=== PATIENT | female | born 1965 | race Caucasian/White ===

== ENCOUNTER 2018-10-01 16:11 | Outpatient (REF) | payer BC, SELFPAY ==
--- NOTE | 2018-10-01 15:40 | PAPFT_PTH ---
PATIENT: Mercedes Naik LOC: [facility] U#:[id number] AGE/SX: 52/F ROOM: RE10/01/[address]: Lashaun Urena : 1965 BED: DIS: 10/01/2018 SPEC #: [id number] RECD: 10/01/18 16:48 STATUS: MACKENZIE REMartinez #: [id number] JANET: 10/01/18 15:[address]: Lashaun Urena DEPT: [facility] Cytology RECD BY: Eugenie Sanchez ENTERED: 10/01/18 16:48 SP TYPE: PAPFT OTHR DR: Katherine Dey V Tissues: 1 - CX/ENDOCX FOR PAP SMEARS Procedures: PAP THIN PREP/UVM Screening HPV DNA PROBE Comments: [id number]
== END 2018-10-01 16:31 ==
LOC: LBN 16:11
PROVIDERS: PCP Family Medicine; Visit Provider Obstetrics & Gynecology Gynecology
DX: Z12.4 Encounter for screening for malignant neoplasm of cervix (principal); Z11.51 Encounter for screening for human papillomavirus (HPV)
CPT/HCPCS: 88142; 87624

== ENCOUNTER 2018-10-14 00:38 | Outpatient (CLI) | payer BC, SELFPAY ==
--- NOTE | 2018-10-14 15:55 | DI.MAMMO_ITS ---
SYMPTOMS/DIAGNOSIS: SCREENING, Z12.31 MAMMOGRAM: Mammograms were interpreted according to the usual protocol including computer analysis with CAD system, tomosynthesis and C view imaging. Comparison is made with 2015 through 2018. The breasts are composed of heterogeneously dense fibroglandular tissue, breast density Category C. No suspicious masses or suspicious microcalcifications are seen. There has been no significant change. IMPRESSION: Category I, negative mammogram. Yearly screening mammography is recommended. [facility] ASSESSMENT OF FINDINGS: Negative. Category 1. Patient will receive a letter notifying them of these results. Bi-RADS category C. The breasts are heterogeneously dense, which may obscure small masses.
== END 2018-10-14 00:58 ==
PROVIDERS: PCP Family Medicine; Visit Provider Obstetrics & Gynecology Gynecology
DX: Z12.31 Encounter for screening mammogram for malignant neoplasm of breast (principal)
CPT/HCPCS: 77063; 77067

== ENCOUNTER 2019-09-20 07:51 | Emergency (ER) | payer OTHER, SELFPAY ==
--- NOTE | 2019-09-20 07:54 | W.ED.GENAD ---
Discharge Plan Disposition Patient Disposition: HOME Condition: Good Discharge Details Chief Complaint: Orthopedic Clinical Impression: Acute pain of right shoulder, Trapezius muscle spasm, Biceps tendinitis Primary Care Provider: Melisa Brower ED Provider: Kirsten Jane Home Meds and New Rx's Prescriptions: New cyclobenzaprine 10 mg tablet 10 mg PO TID PRN (Reason: muscle spasm) Qty: 10 RF: 0 Continued ranitidine HCl [Zantac] 150 mg tablet 150 mg PO BID RF: 0 fluticasone propionate [Flonase Allergy Relief] 50 mcg/actuation spray,suspension 1 spray YULY DAILY RF: 0 ketotifen fumarate [Zaditor] 5 ML drops 5 ml Ophthalmic DAILY RF: 0 Vitamin C 1,000 mg Tablet Extended Release 1,000 mg PO DAILY RF: 0 famotidine 20 mg Tablet 20 mg PO BID RF: 0 cyanocobalamin (vitamin B-12) [Vitamin B-12] 500 mcg Tablet 500 mcg PO DAILY RF: 0 loratadine 10 mg Tablet 10 mg PO DAILY RF: 0 Discharge Instructions Instructions: Tendinitis (ED), Shoulder Pain (ED) Additional Instructions: Your shoulder x-ray shows mild arthritis. I am concerned you may have a rotator cuff injury but I am unable to evaluate this at this time. I would like for you to follow-up with orthopedics to have this reevaluated. You also have pain of your biceps tendon as well as spasm of the trapezius. I would like you to encourage water intake. You may use Tylenol and/or ibuprofen as needed for discomfort. Please use the sling to help with discomfort to take this off multiple times a day to perform range of motion. As you are able, you may wean from your sling. Please perform the passive range of motion as discussed. Heat may help prior to this. You may ice the area as well to help with discomfort. Please use the Flexeril as prescribed to help with muscle spasm. Do not drive will take this medication. Physical therapy referral is attached. Please call orthopedics tomorrow morning to schedule follow-up appointment. If you develop any new or worsening symptoms please seek care urgently once again. Stand Alone Forms: Physical Therapy Referral, Work Release Referrals: Leo Kim MD [ [facility] STAFF PHYSICIAN] - Melisa Brower [Primary Care Provider] - Discharge Data Discharge Date/Time-TO BE ENTERED AT DEPARTURE: 09/20/19 09:33 Medical Decision Making Patient is a pleasant [id number] 53-year-old female presenting today with chief complaint of right shoulder pain. She reports that yesterday, while working at a [employer] yard, somebody had caused her a piece of pressure-treated wood. She states that she did catch in her hand but heard a pop and crunch in the right shoulder. States that she did have some discomfort immediately after but that the pain is progressively worsened. Is unable to move the right shoulder at all. States that she can occasionally have some tingling in the right hand but is not endorsing this this time. States that she did take Tylenol approximately 8 hours prior to arrival. States that this did help some but she did have difficulty sleeping secondary to pain. No pain in the elbow, wrist, hand. Patient does have multiple bandage on the right hand which she denies any lacerations or break in the skin at the time of the injury. States that the are from working outside [employer]. No previous surgeries or injuries to this. On exam, patient does appear uncomfortable. She is point tender over the biceps tendon. Did not appreciate any Sulaiman deformity. She is full range of motion of the elbow, wrist, hands. Patient is also tender over the trapezius and does feel tight in this area. She has minimal range of motion of the shoulder. No pain in her neck, good range of motion of her neck. 2+ distal pulses, normal neurologic exam of the right upper extremity. Plan for imaging. Unable to fully assess the rotator cuff at this time secondary to patient's discomfort. Will give Tylenol, ibuprofen and Flexeril for discomfort. Majority of her pain is coming from the trapezius at this time and is consistent with spasm. She does have a friend who brought her in and can drive her home. FINDINGS: Bones/joints: Degenerative changes in the glenohumeral joint and acromioclavicular joint There is no evidence of acute fracture.There is no evidence of malalignment or dislocation. Soft tissues: Normal. IMPRESSION: There is no evidence of acute fracture.There is no evidence of malalignment or dislocation Discussed these findings with the patient. Encourage rest, ice, elevation. Tylenol and ibuprofen as needed for discomfort. She does report slight improvement of her discomfort. We will continue her on the Flexeril to help with muscle spasm. I am concerned about her rotator cuff given her discomfort, tenderness over the lateral aspect of the shoulder and limited range of motion at this point. However, I did advise that some of her pain is feel to come down prior to thorough examination of this. Will refer to orthopedics. I did advise that likely would be a few weeks before they would be able to evaluate her appropriately. We will give her a sling to help with discomfort but I did encourage that she try to take this off multiple times a day to allow for passive range of motion. Passive range of motion exercises were demonstrated for the patient. We did discuss activities that she should avoid. We will refer her to physical therapy to help encourage early range of motion and prevent adhesive capsulitis. She is given return precautions. All her questions and concerns were addressed and she is in agreement this plan. [facility] General Mode of arrival: ambulatory. Date/Time Provider Initiated Documentation: 09/20/19 07:54. Limitations to Documentation: no limitations. Information obtained by: patient and RN notes reviewed. History of Present Illness 53 year old F presents to the emergency department with the chief complaint of Right shoulder pain, described as severe, Quality is described as aching, and is localized to the right and upper extremity. Patient reports no radiation. Patient started experiencing this day(s) (1) and it has been constant. Immobilization improves symptom(s), Movement worsens symptoms . Patient notes no other symptoms.. Patient did receive the following treatments prior to arrival, none Related Data Home Medications Medication Instructions Recorded Confirmed ketotifen fumarate [Zaditor] 5 ml OPHTHALMIC DAILY script 06/21/17 fluticasone propionate 50 1 spray YULY DAILY 10/01/18 10/01/18 mcg/actuation nasal spray,suspension ranitidine HCl 150 mg tablet 150 mg PO BID 10/01/18 10/01/18 Vitamin C 1,000 mg PO DAILY 09/20/19 09/20/19 cyanocobalamin (vitamin B-12) 500 mcg PO DAILY 09/20/19 09/20/19 [Vitamin B-12] cyclobenzaprine 10 mg PO TID PRN #10 tab 09/20/19 famotidine 20 mg PO BID 09/20/19 09/20/19 loratadine 10 mg PO DAILY 09/20/19 09/20/19 Previous Rx's Medication Instructions Recorded cyclobenzaprine 10 mg PO TID PRN #10 tab 09/20/19 Allergies Allergy/AdvReac Type Severity Reaction Status Date / Time clarithromycin [From Biaxin] Allergy Intermediate Hives Unverified 10/01/18 15:18 sulfamethoxazole Allergy Intermediate Rash Unverified 10/01/18 15:18 [From Septra] trimethoprim [From ] Allergy Intermediate Rash Unverified 10/01/18 15:18 epinephrine AdvReac Severe Irregular Unverified 10/01/18 15:18 Heartbeat erythromycin base AdvReac Severe GI Symptoms Unverified 10/01/18 15:18 [Erythromycin Base] [place] AdvReac Severe Flu like Uncoded 10/01/18 15:18 symptoms Review of Systems Constitutional Constitutional: Reports as per HPI, Denies chills, Denies fever(s), Denies headache(s) and Denies weakness ENT Ears, Nose, Mouth, and Throat: Denies headache(s) Cardiovascular Cardiovascular: Reports as per HPI Respiratory Respiratory: Reports as per HPI and Denies cough Musculoskeletal Musculoskeletal: Reports as per HPI and Denies tingling Integumentary/Breasts Skin/Breast: Reports as per HPI, Denies rash and Denies wounds Neurologic Neurologic: Reports as per HPI, Denies headache(s), Denies tingling, Denies paresthesias and Denies weakness [facility] Medical History Abdominal pain Generalized severe discomfort. Negative eval at [facility]. Campylobacter bacteremia 1998. Full recovery. GERD (gastroesophageal reflux disease) Hx LEEP (loop electrosurgical excision procedure), cervix, (Acute) 2017. CIN2. Clear margins. Nl pap 2018 and 2019. Raynaud phenomenon Rheumatoid arthritis Ulnar neuritis Surgical History Cholecystectomy EGD - IV Sedation 2016 Tonsillectomy Family History (Updated 11/11/18 @ 20:54 by Lashaun Urena MD) Mother Heart disease Son JRA (juvenile rheumatoid arthritis) Father Lung cancer 2012 Social History Smoking/Tobacco Use Status: Former Tobacco Use Pack-years: 10 Alcohol Intake: never Drug use: Never Household members: children and other Details: Son. [employer] restaurant district manager Rylan [employer]. Partner ? Serge. ? Number of Children: 2 Communication Needs: None Other: - Serge. What is your relationship status?: Panel score (0-1 are the most socially isolated patients): 0 Additional Social history: Daughter Chris.18yo. 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 Son Colton. 29yo Female Reproductive History Menstrual Menopause type: natural (LMP 02/2017.) History History 3 Para Hx # Term Pregnancies 2 Multiple births Hx # Pregnancies Ectopic pregnancies AB induced Hx Number of Living Children AB spontaneous Exam Const General: cooperative, healthy appearing, uncomfortable, no acute distress, well developed and well groomed Nutritional Appearance: average body habitus and well nourished Orientation: alert and awake Resp Effort & Inspection: normal respiratory effort, able to speak in complete sentences and no respiratory distress Cardio Rate: regular rate Rhythm: regular rhythm Skin General skin exam: no rashes or lesions noted Lesions: no lesions Rashes: no rashes Trauma: no lacerations or abrasions Neuro General: patient alert and patient awake Cognition: normal cognition Speech: speech normal Gait: normal gait Motor: muscle tone normal throughout Sensory Exam: no sensory deficits noted Extrem Right upper extremity: normal capillary refill, shoulder/upper arm Details: normal to inspection, tenderness (over trapezius) Location: of the A-C joint and over the biceps tendon and axillary nerve sensory function normal; ROM limited (patient will not move shoulder at all secondary to pain), no abrasions, no lacerations, no ecchymosis, no penetrating wound and no deformity, elbow/forearm Details: normal to inspection, normal ROM and distal pulses intact; no tenderness and no swelling, wrist Details: normal to inspection, normal ROM, normal vascular exam and radial pulse present; no tenderness and no swelling and hand Details: normal to inspection, neuromotor exam normal, neurosensory exam normal, normal ROM of fingers and no swelling; no tenderness; ROM limited Psych Appearance: grossly normal and well kempt Mental Status: mental status grossly normal Speech and Movement: speech and movement normal
[2019-09-20 07:57] VITALS: BP 113/63; PULSE 65; RESP 16; TEMP 36.7; O2SAT 100
[2019-09-20] MEDS: Lidocaine 5% Patch 1 PATCH TP (08:22)
[2019-09-20] MEDS: Acetaminophen 500 MG TAB 1000 MG PO (08:22)
[2019-09-20] MEDS: Ibuprofen 600 MG TAB PO (08:22)
[2019-09-20] MEDS: Cyclobenzaprine 10 MG TAB PO (08:30)
--- NOTE | 2019-09-20 08:52 | DI.RAD_ITS ---
EXAM: XR SHOULDER RT COMPLETE 2+V CLINICAL HISTORY: injury yesterday, generalized severe pain TECHNIQUE: COMPARISON: No exams were available for comparison FINDINGS: Four views were obtained. There is no evidence of acute fracture or dislocation. IMPRESSION:
--- NOTE | 2019-09-20 09:01 | DI.VRAD_ITS ---
PROCEDURE INFORMATION: Exam: XR Right Shoulder Exam date and time: 09/20/2019 8:49 AM Age: 53 years old Clinical indication: Pain; Shoulder; Right; Additional info: Injury yesterday, generalized right shoulder severe pain. TECHNIQUE: Imaging protocol: XR Right shoulder. Views: 2 or more views. COMPARISON: No relevant prior studies available. FINDINGS: Bones/joints: Degenerative changes in the glenohumeral joint and acromioclavicular joint There is no evidence of acute fracture.There is no evidence of malalignment or dislocation. Soft tissues: Normal. IMPRESSION: There is no evidence of acute fracture.There is no evidence of malalignment or dislocation. Dictated and Authenticated by: Mayo Cisneros MD. Ordering:ROSELIA Curtis MD
== END 2019-09-20 09:33 | disposition home or self-care (01) ==
PROVIDERS: Emergency Provider Physician Assistant; PCP Family Medicine
DX: M75.21 Bicipital tendinitis, right shoulder (principal); M62.838 Other muscle spasm; M25.511 Pain in right shoulder; X50.9XXA Other and unspecified overexertion or strenuous movements or postures, initial encounter; Y99.0 Civilian activity done for income or pay
CPT/HCPCS: 99283; 73030; L3650

== ENCOUNTER 2019-09-28 10:21 | Outpatient (CLI) | payer OTHER, SELFPAY ==
--- NOTE | 2019-09-28 10:15 | DI.RAD_ITS ---
EXAM: XR SHOULDER RT 1V CLINICAL HISTORY: right shoulder pain. TECHNIQUE: 2D digital imaging was performed. COMPARISON: CR,XR XR SHOULDER RT COMPLETE 2+V from 09/20/2019 FINDINGS: A single axillary view was obtained. There is normal alignment. No bone or joint abnormality is see n on this limited view of the right shoulder. The soft tissues are unremarkable. IMPRESSION: No gross abnormality on this limited examination of the right shoulder. DATA REPOSITORY: RADIATION DOSE DELIVERED:
== END 2019-09-28 10:41 ==
PROVIDERS: PCP Family Medicine; Referring Provider Family Medicine; Visit Provider Student in an Organized Health Care Education/Training Program
DX: M25.511 Pain in right shoulder (principal)
CPT/HCPCS: 73020

== ENCOUNTER 2019-12-01 01:03 | Outpatient (CLI) | payer OTHER, SELFPAY ==
--- NOTE | 2019-12-01 15:50 | DI.MRI_ITS ---
EXAM: MR UPPER JOINT RT WO CLINICAL HISTORY: SHOULDER PAIN, BURSITIS RT SHOULDER,M75.51,M75.21. TECHNIQUE: Multiplanar multisequence MRI was performed. CONTRAST MATERIAL: IV Contrast: mL of Dotarem contrast administered. COMPARISON: None. FINDINGS: There is no evidence of fracture or contusion. There are minimal degenerative changes of the AC C neeta int. There may be mild impingement on the supraspinatus muscle tendon junction. There is a small am ount of fluid in the subacromial subdeltoid bursa. A small amount of fluid is seen in the subcoracoi d bursa. There is minimal signal in the supraspinatus tendon but no visible focal tear. The infrasp inatus, subscapularis, biceps and teres minor tendons are unremarkable. No labral defects are seen. IMPRESSION: Subacromion subdeltoid bursitis and mild supraspinatus tendinosis. DATA REPOSITORY:
== END 2019-12-01 01:23 ==
PROVIDERS: PCP Family Medicine; Visit Provider Student in an Organized Health Care Education/Training Program
DX: M75.51 Bursitis of right shoulder (principal); M75.81 Other shoulder lesions, right shoulder
CPT/HCPCS: 73221

== ENCOUNTER 2019-12-22 09:03 | Outpatient (CLI) | payer OTHER, SELFPAY ==
[2019-12-24 09:10] LABS: SARS-CoV-2 RNA Not Detected (NotDetected); SARS-CoV-2 RNA Source Nasal/Nares
== END 2019-12-22 09:23 ==
PROVIDERS: PCP Family Medicine; Visit Provider Student in an Organized Health Care Education/Training Program
DX: Z01.818 Encounter for other preprocedural examination (principal); M75.81 Other shoulder lesions, right shoulder; M75.51 Bursitis of right shoulder; M75.21 Bicipital tendinitis, right shoulder
CPT/HCPCS: U0003

== ENCOUNTER 2019-12-25 08:53 | Day surgery (SDC) | payer OTHER, SELFPAY ==
[2019-12-25] VITALS (9 sets, daily range): BP systolic 102–134; BP diastolic 44–66; PULSE 60–80; RESP 15–20; TEMP 36.4–36.7; O2SAT 93–98
[2019-12-25] MEDS: Lactated Ringers 1,000 ML 100 ML IV (09:57)
[2019-12-25] MEDS: Scopolamine 1 MG/3 DAYS PATCH TD (10:05)
[2019-12-25] MEDS: ceFAZolin 2 GM/50 ML BAG IVPB (12:19)
[2019-12-25] MEDS: Bupivacaine 0.25% Pres-Free 30 ML VIAL (13:19)
[2019-12-25] MEDS: EPINEPHrine 1 MG/ML AMP pres-free (13:20)
[2019-12-25] MEDS: EPINEPHrine 30 MG/30 ML VIAL (13:27)
--- NOTE | 2019-12-25 14:00 | W.PM.DSUDISC ---
Discharge Plan Disposition Patient Disposition: HOME Condition: Stable Discharge Details Reason For Visit: Right shoulder surgery Attending Provider: Amol Jarquin Primary Care Provider: Melisa Brower Home Meds and New Rx's Prescriptions: New naproxen 250 mg tablet 250 - 500 mg PO BID PRN (Reason: Moderate pain or swelling) Qty: 60 RF: 0 aspirin 81 mg tablet,delayed release (DR/EC) 81 mg PO DAILY 14 Days Qty: 14 RF: 0 tramadol 50 mg Tablet 50 mg PO Q8H PRN PRN (Reason: severe pain) Qty: 22 RF: 0 ondansetron 4 mg tablet,disintegrating 4 mg PO Q6H PRN (Reason: nausea or vomiting) Qty: 5 RF: 0 Continued ibuprofen 200 mg tablet 200 mg PO Q6H PRNRF: 0 acetaminophen 500 mg tablet 500 mg PO Q6H PRNRF: 0 Vitamin C 1,000 mg Tablet Extended Release 1,000 mg PO DAILY RF: 0 famotidine 20 mg Tablet 20 mg PO BID RF: 0 cyanocobalamin (vitamin B-12) [Vitamin B-12] 500 mcg Tablet 500 mcg PO DAILY RF: 0 loratadine 10 mg Tablet 10 mg PO DAILY RF: 0 Discharge Instructions Additional Instructions: Surgery: Shoulder arthroscopy with extensive debridement, subacromial decompression, and mini open biceps tenodesis Activity: You should gradually increase range of motion motion and use of your shoulder. Please perform daily stretching exercises. You may use your shoulder for all regular activities. Avoid heavy lifting, reaching overhead, and lifting away from body for approximately 6 to 8 weeks. You may use the sling whenever you are out of the house for a few weeks. You may have to adjust the abduction pillow or remove it for comfort. At home it is best to remove the sling and rest the arm on a pillow at your side or support the operative side with your other hand. You may allow the arm to dangle at your side. A physical therapy prescription will be provided separately in the office at follow-up if needed. Prescriptions: Aspirin 81 mg take 1 daily to prevent a blood clot for 2 weeks Naproxen 250 mg take 1-2 every 12 hours with a meal as needed for moderate pain Oxycodone 5 mg take 1-2 every 4-6 hours as needed for severe pain You may use oavz-vva-rmhojis Tylenol (acetaminophen) as needed for mild pain. These pain medications may be taken all at once or in different combinations as needed. Ondansetron (Zofran) 4 mg take 1 orally dissolving tablet every 6 hours as needed for nausea or vomiting Also, recommend Colace (docusate) as a stool softener as surgery and pain medicine cause constipation. Dressings: Remove shoulder bandage after 3 days. Leave the sticky Steri-Strips in place until they fall off or remove them after you shower. Cover the incisions with Band-Aids or leave them open to air. The biceps bandage (inside upper arm) is glued on separately. You may leave this one on a few days longer if it is difficult to remove. There is also glue underneath this bandage that can be left in place until it peels off. You may shower after 5 days. Follow-up: 10-[address] Jarquin You may take off the leg compression stockings this evening at home. You may also leave them on a few days longer if you have a history of leg swelling or edema. Let us know right away if you develop any redness, drainage, fevers, chest pain, or trouble breathing. Do not drink alcohol or drive for at least 24 hours after anesthesia. Please call the office during business hours with any questions or concerns. Stand Alone Forms: Anes.Nerve Block Instructions, Scopolamine Skin Patch, Jena Silva ([facility]) Referrals: Amol Jarquin MD [ [facility] STAFF PHYSICIAN] - Discharge Orders Discharge Orders: Discharge Order (Routine); Ordered 12/25/19 Ordered By: Amol Jarquin DS: Diagnosis Discharge Diagnosis (1) Tendonitis of long head of biceps brachii of right shoulder: Status: Acute (2) Bursitis of right shoulder: Status: Acute (3) SLAP lesion of right shoulder: Status: Acute (4) Traumatic tear of right rotator cuff: Status: Acute
--- NOTE | 2019-12-25 14:06 | W.PM.OP ---
Date of service: 12/25/19 Time of Service: 14:00 Operative Note Operative Note DATE OF PROCEDURE: 12/25/19 PRE-OP DIAGNOSIS: Right: 1. SLAP tear 2. LHB tendinopathy 3. Bursitis POST-OP DIAGNOSIS: other Right: 1. SLAP tear 2. LHB tendinopathy 3. Bursitis 4. Rotator cuff tear: Small articular supraspinatus fraying PROCEDURE: Right: 1. Open biceps tenodesis, CPT# 18280. This involved reattaching the long head of the biceps tendon to the proximal humerus in the sub-pectoral area of the bicipital groove at the correct tension. 2. Extensive debridement, CPT# 29929. This involved using arthroscopic hand instruments, power instruments, and radiofrequency instruments to release to release the long head of the biceps tendon and debride areas of labral tearing, synovitis, and partial articular sided rotator cuff tearing within the glenohumeral joint anteriorly, superiorly and posteriorly. 3. Subacromial decompression with partial acromioplasty, CPT# 16487. This involved using arthroscopic power instruments and a radiofrequency wand to complete a bursectomy and remove bone spurs on the undersurface of the acromion. The assistant professor of english was medically required in order to help assist in techniques above, which require positioning the arm, holding the arthroscope, and manipulating multiple instruments and sutures at the same time. This cannot be done without the help of an experienced assistant professor of english. SURGEON: Amol Jarquin EMD TEACHER: Yolanda Winter ANESTHESIA: GETA, regional and local ESTIMATED BLOOD LOSS: 5 PATHOLOGY: none sent COMPLICATIONS: None Patient was transported to: PACU Patient's condition: stable Implants: Arthrex: Unicortical Proximal Biceps Tenodesis Button Indications: The patient was diagnosed with the above conditions and appropriately indicated for surgical intervention. Please see complete medical record for details. Findings: Exam under anesthesia: Full, symmetrical range of motion. No instability. Glenohumeral joint: moderately displaced SLAP tear with labral fraying anterior, superior, and posterior. Significant long head of the biceps injection/inflammation. Intact subscapularis. Intact infraspinatus. Intact cartilaginous surfaces. Minor few millimeters most anterior supraspinatus partial-thickness fraying. Subacromial space: Moderate bursitis. Minimal subacromial bone spur. Intact bursal sided rotator cuff spinatus infraspinatus throughout. Procedure Description: In the operating room, general anesthesia was induced. Bilateral shoulders were examined. The patient was positioned in the beachchair position. All bony prominences were well-padded. Preoperative antibiotics were administered. The shoulder was prepped and draped in the usual sterile fashion. The correct patient, procedure, and side of the procedure were all verified prior to incision. Starting through the posterior portal a standard complete diagnostic arthroscopy was performed of the glenohumeral joint including inspection of the long head of the biceps, anterior and superior labrum, subscapularis tendon, supraspinatus and infraspinatus tendons, and axillary recess. The glenoid and humeral head cartilage as well as the posterior labrum were inspected from an anterior viewing portal. Significant findings and interventions noted above. The biceps tendon was released from the superior labrum using arthroscopic scissors. Starting through the posterior portal, the arthroscope was directed into the subacromial space. A lateral 50 yard line lateral portal was created. A combination of power instruments and a radiofrequency ablator were used to debride bursitis anteriorly, posteriorly, and laterally as well as expose and smooth bone spurring on the undersurface of the acromion. The coracoacromial ligament was partially preserved. The bursectomy was completed viewing laterally and working from posteriorly and the rotator cuff was thoroughly inspected with findings noted above. 20 cc of 0.25% bupivacaine with epinephrine was infiltrated about a 2 cm longitudinal incision at the inferior margin of the pectoralis major localized over the long head of the biceps tendon. Blunt and sharp dissection were used to expose the tendon in the bicipital groove. The tendon was brought out of the wound and kept off the skin on top of a blue towel. Using a fiber loop suture the tendon was prepped from the musculotendinous junction a few centimeters proximal. The excess tendon was amputated. The correct location for sub-pectoral fixation was localized, prepped with a rasp, and then drilled with a 2.6 mm drill pin in a unicortical fashion through the guide. The FiberTak button implant was inserted through the guide, deployed, and tested. The free FiberLoop suture ends were then passed through the implant using the preloaded FiberLoop shuttling sutures. The sutures were tensioned bringing the tendon down to bone. Tension and fixation were then tested and found to be appropriate. A free needle was used to pass suture through the tendon and the free ends of the suture were were tied compressing tendon to bone. The wound was copiously irrigated with normal saline. Subcutaneous tissue was closed using 3-0 Monocryl in a buried interrupted fashion. Skin was closed using 3-0 Monocryl in a buried subcuticular running fashion. Skin glue was applied over the incision. Mastisol was applied about the incision. The incision was covered with Telfa, gauze, and covered with a Tegaderm dressing. The shoulder was drained of arthroscopic fluid. All portal sites were copiously irrigated. These incisions were closed using 3-0 Monocryl in a buried fashion, covered with Mastisol, Steri-Strips, Xeroform, dry gauze, and ABDs. The dressings were covered and secured with Medipore tape. The operative extremity was placed into a sling for immobilization. The patient awoke from anesthesia without complication and was transferred to the recovery room in a stable condition.
[2019-12-25] MEDS: Acetaminophen 500 MG TAB 1000 MG PO (16:03)
== END 2019-12-25 16:45 | disposition home or self-care (01) ==
PROVIDERS: PCP Family Medicine; Visit Provider Student in an Organized Health Care Education/Training Program
PROC: (CPT 29805; principal; 2019-12-25 10:45)
PROC: (CPT 23430; 2019-12-25 10:45)
DX: M75.21 Bicipital tendinitis, right shoulder (principal); M75.51 Bursitis of right shoulder; M75.111 Incomplete rotator cuff tear or rupture of right shoulder, not specified as traumatic; I73.00 Raynaud's syndrome without gangrene; K21.9 Gastro-esophageal reflux disease without esophagitis; M24.111 Other articular cartilage disorders, right shoulder
CPT/HCPCS: 23430; 29823; 29826; 76942; L3670; J0171; J0690; J1100; J1885; J2001; J2250; J2405; J2704

== ENCOUNTER 2020-03-01 17:46 | Outpatient (REF) | payer BC, SELFPAY ==
--- NOTE | 2020-03-01 16:00 | PAPFT_PTH ---
PATIENT: Mercedes Naik LOC: [facility] U#:[id number] AGE/SX: 54/F ROOM: RE03/01/[address]: Lashaun Urena : 1965 BED: DIS: 03/01/2020 SPEC #: [id number] RECD: 03/01/20 18:21 STATUS: MACKENZIE REMartinez #: [id number] JANET: 03/01/20 16:[address]: Lashaun Urena DEPT: [facility] Cytology RECD BY: Eugenie Sanchez ENTERED: 03/01/20 18:22 SP TYPE: PAPFT OTHR DR: Melisa Brower Tissues: 1 - CX/ENDOCX FOR PAP SMEARS Procedures: PAP THIN PREP/UVM Screening HPV DNA PROBE Comments: [id number]
== END 2020-03-01 18:06 ==
LOC: LBN 17:46
PROVIDERS: PCP Family Medicine; Visit Provider Obstetrics & Gynecology Gynecology
DX: Z12.4 Encounter for screening for malignant neoplasm of cervix (principal); Z11.51 Encounter for screening for human papillomavirus (HPV)
CPT/HCPCS: 88142; 87624

== ENCOUNTER 2020-03-15 01:59 | Outpatient (CLI) | payer BC, SELFPAY ==
--- NOTE | 2020-03-15 16:04 | DI.MAMMO_ITS ---
EXAM: MAMMO SCREENING CLINICAL HISTORY: screening TECHNIQUE: Mammograms were interpreted according to the usual protocol including computer analysis w [employer] CAD system, tomosynthesis and C-view imaging. COMPARISON: 2010 through 2018 FINDINGS: The breasts are composed of heterogeneously dense fibroglandular densities, Breast Density category C . No suspicious masses or suspicious microcalcifications are seen. No skin thickening or abnormal axillary lymph nodes are seen. There has been no significant change from prior exams. IMPRESSION: BI-RADS Category 1, Negative mammogram. Yearly screening mammography is recommended. Breast Density Category C, heterogeneously Dense. The mammogram demonstrates the patient's breast tissue is dense. Dense breast tissue is very common a nd is not abnormal but dense breast tissue can make it harder to find cancer on a mammogram. Also, de nse breast tissue may increase breast cancer risk. This information about the result of the mammogram report was provided to the patient to raise their awareness. Use this report when you speak with the patient about their risks for breast cancer, which includes their family history. At that time, you may recommend additional screening tests (Ultrasound or MRI) as they might be useful based on their r isk. A negative radiographic report should not delay biopsy if a dominant or clinically suspicious mass is present. Up to ten percent of cancers are not identified on mammography. A negative report may reinforce clinical impression. Adenosis and dense breasts may obscure an underlying neoplasm. False positive reports average 6 to 10%.
== END 2020-03-15 02:19 ==
PROVIDERS: PCP Family Medicine; Visit Provider Obstetrics & Gynecology Gynecology
DX: Z12.31 Encounter for screening mammogram for malignant neoplasm of breast (principal)
CPT/HCPCS: 77063; 77067

== ENCOUNTER 2020-12-14 10:17 | Outpatient (CLI) | payer OTHER, SELFPAY ==
--- NOTE | 2020-12-14 10:00 | DI.RAD_ITS ---
Exam(s) XR SHOULDER RT COMPLETE 2+V EXAM: XR SHOULDER RT COMPLETE 2+V CLINICAL HISTORY: right rotator cuff tear f/u. TECHNIQUE: 2D digital imaging was performed. COMPARISON: CR,XR XR SHOULDER RT COMPLETE 2+V from 09/20/2019 CR,XR XR SHOULDER RT COMPLETE 2+V from 09/20/2019 CR XR SHOULDER RT 1V from 09/28/2019 CR XR SHOULDER RT 1V from 09/28/2019 MR MR UPPER JOINT RT WO from 12/01/2019 MR MR UPPER JOINT RT WO from 12/01/2019 FINDINGS: There is no evidence of fracture or dislocation. No abnormal soft tissue calcifications. However, t here is now a focal lucency in the anterior aspect of the proximal diaphysis of the humerus which is most probably a biceps tenodesis site. This for IUD was not evident on the September 2019 images. Chevy elation with interval orthopedic repair recommended No degenerative changes in the glenohumeral joint. Minimal degenerative changes in the AC joint. IMPRESSION: Findings as above. Interval biceps tenodesis. DATA REPOSITORY: RADIATION DOSE DELIVERED:
== END 2020-12-14 10:18 | disposition home or self-care (01) ==
LOC: DIORS 10:17
PROVIDERS: PCP Family Medicine; Visit Provider Student in an Organized Health Care Education/Training Program
DX: S46.011D Strain of muscle(s) and tendon(s) of the rotator cuff of right shoulder, subsequent encounter (principal); M75.21 Bicipital tendinitis, right shoulder
CPT/HCPCS: 73030

== ENCOUNTER 2020-12-15 02:05 | Outpatient (CLI) | payer OTHER, SELFPAY ==
[2020-12-15 08:27] LABS: Abs Immature Grans 0.02 10^3/uL (0.0-0.06); Absolute Basophil Count 0.03 10^3/uL (0.0-0.2); Absolute Eosinophil Count 0.13 10^3/uL (0.0-0.7); Absolute Lymphocyte Count 1.98 10^3/uL (1.2-3.4); Absolute Monocyte Count 0.49 10^3/uL (0.1-0.8); Absolute Neutrophil Count 3.88 10^3/uL (1.2-6.7); Basophils % 0.5; ESR 3 mm/hr (0-30); HGB 13.2 g/dL (11.2-15.7); Immature Grans % 0.3; Lymphocytes % 30.3; MCH 28.8 pg (27.0-33.0); MCHC 32.2 % (32.0-36.0); MCV 89.5 fL (80-95); MPV 9.8 fL (8.0-11.0); Monocytes % 7.5; Neutrophils % 59.4; Nucleated RBC 0 %; Platelet Count 288 10^3/uL (130-400); RBC 4.58 10^6/uL (3.93-5.22); RDW 13.6 % (11.7-14.6); RDW-SD 44.6 fL; WBC 6.53 10^3/uL (4.4-10.8)
[2020-12-15 09:24] LABS: C-Reactive Protein 0.07 mg/dL (0.0-0.3)
== END 2020-12-15 02:06 | disposition home or self-care (01) ==
LOC: LBO 02:05
PROVIDERS: PCP Family Medicine; Visit Provider Student in an Organized Health Care Education/Training Program
DX: M75.21 Bicipital tendinitis, right shoulder (principal); S43.431D Superior glenoid labrum lesion of right shoulder, subsequent encounter; X58.XXXD Exposure to other specified factors, subsequent encounter
CPT/HCPCS: 36415; 85652; 85025; 86140

== ENCOUNTER 2020-12-30 00:41 | Outpatient (CLI) | payer OTHER, SELFPAY ==
--- NOTE | 2020-12-30 07:00 | DI.MRI_ITS ---
Exam(s) MR UPPER JOINT RT WO CLINICAL HISTORY: Persistent pain,TRAUMATIC TEAR RT ROTATOR CUFF, SLAP LESION,TENDONITIS,M75.. TECHNIQUE: Multiplanar multisequence MRI was performed. COMPARISON: None FINDINGS: MR examination of the shoulder was performed according to the usual protocol. There is no significant effusion of the glenohumeral joint. There is minimal fluid in the subacromia l subdeltoid bursa. Bones and labrum: No definite labral tear identified. There are moderate hypertrophic changes at the acromioclavicular joint with associated deformity of the superior aspect of the supraspinatus myoten dinous junction region and there is some narrowing of the acromial outlet. Rotator cuff: There is abnormal signal in the distal subscapularis, supraspinatus, and infraspinatus tendons consistent with tendinosis. There is probable small undersurface partial-thickness tear of the supraspinatus footprint anteriorly, mild partial-thickness tearing of undersurface of subscapular is attachment may be present as well. No full-thickness tear or retracted tendon identified in the r otator cuff. There is increased signal in the rotator interval, no definite tear seen. Biceps tendon and anchor: Biceps tendon is absent from the bicipital groove. Presumed reattachment p oint on the proximal humeral diaphysis is noted but not well visualized. IMPRESSION: Patient is presumably status post biceps reattachment with biceps tendon absent from the bicipital gr oove. Rotator cuff tendinosis noted along with mild undersurface tearing of supraspinatus and subscapularis tendons with no full-thickness tear or retracted tear seen. No definite labral tear identified on t his noncontrast study. DATA REPOSITORY:
== END 2020-12-30 01:01 ==
PROVIDERS: PCP Family Medicine; Visit Provider Student in an Organized Health Care Education/Training Program
DX: M75.21 Bicipital tendinitis, right shoulder (principal); S43.431D Superior glenoid labrum lesion of right shoulder, subsequent encounter; S46.011A Strain of muscle(s) and tendon(s) of the rotator cuff of right shoulder, initial encounter; X58.XXXA Exposure to other specified factors, initial encounter
CPT/HCPCS: 73221

== ENCOUNTER → 2021-11-15 01:48 | Outpatient (CLI) | payer BC, SELFPAY ==
--- NOTE | 2021-11-15 08:30 | DI.MAMMO_ITS ---
Exam(s) MAMMO SCREENING EXAM: MAMMO SCREENING CLINICAL HISTORY: screening,z12.39 TECHNIQUE: Bilateral full field digital CC and MLO mammographic images were obtained with 3D tomosyn thesis and utilizing computer aided detection (CAD). COMPARISON: Available for comparison. FINDINGS: Masses/Architectural Distortion: There is increased prominence of an area of asymmetric breast tissue in the upper right breast on the mediolateral oblique view. There is a similar area of increased de nsity in the upper left breast centrally on the MLO view. Microcalcifications: No suspicious pleomorphic-type are seen. Skin Thickening/Nipple Retraction: None. IMPRESSION: 1. Areas on both the right and left breasts which required additional imaging. 2. Additional views are requested. Ultrasound may be indicated at that time. BI-RADS Category 0 - Assessment Incomplete: Need additional imaging evaluation Breast Density - Category C - Heterogeneously dense Breast density category C or D implies that the patient has dense breast tissue. Dense breast tissue is very common and is not abnormal but dense breast tissue can make it harder to find cancer on a ma mmogram. Also, dense breast tissue may increase their breast cancer risk. This information about the result of the mammogram report was provided to the patient to raise their awareness. Use this report when you speak with the patient about their risks for breast cancer, which includes their family hist ory. At that time, you may recommend for more screening tests (Ultrasound or MRI) as they might be us eful based on their risk. A negative radiographic report should not delay biopsy if a dominant or clinically suspicious mass is present. Up to ten percent of cancers are not identified on mammography. A negative report may reinforce clinical impression. Adenosis and dense breasts may obscure an underlying neoplasm. False positive reports average 6 to 10%. Patient will receive a letter notifying them of these results.
== END ==
PROVIDERS: PCP Family Medicine; Visit Provider Obstetrics & Gynecology Gynecology
DX: Z12.31 Encounter for screening mammogram for malignant neoplasm of breast (principal); R92.8 Other abnormal and inconclusive findings on diagnostic imaging of breast
CPT/HCPCS: 77063; 77067

== ENCOUNTER → 2022-01-03 01:56 | Outpatient (CLI) | payer BC, SELFPAY ==
--- NOTE | 2022-01-03 | DI.MAMMO_ITS ---
Exam(s) MAMMO SCREEN CALL BACK BI EXAM: MAMMO SCREEN CALL BACK BI CLINICAL HISTORY: F/U MAMMO,INCREASED PROMINENCE ASYMMETRIC BREAST TISSUE,R92.8 TECHNIQUE: Spot compression views with tomographic imaging were performed. COMPARISON: 2012 through 15 November 2021 FINDINGS: Bilateral MLO spot compression views with tomography were performed the superior aspect of both breas ts. No suspicious masses or suspicious microcalcifications are seen. No persistent abnormality is seen on the additional views performed. The findings are consistent wit h overlying fibroglandular tissue. There has been no significant change from prior exams. IMPRESSION: BI-RADS Category 1, Negative Yearly screening mammography is recommended. Breast Density - Category B, scattered fibroglandular densities.
--- NOTE | 2022-01-03 10:00 | DI.US_ITS ---
Exam(s) US PELVIS TRANSVAGINAL EXAM: US PELVIS TRANSVAGINAL CLINICAL HISTORY: bloating and constipation,K59.00 TECHNIQUE: Transabdominal and transvaginal imaging was performed using standard protocol. COMPARISON: US PELVIS TRANSVAG from 06/24/2017 FINDINGS: KIDNEYS: Kidneys are symmetric in size. No evidence of renal calculi. No evidence of hydronephrosis. No renal mass or cyst identified. UTERUS: Anteverted. 6.4 x 3.6 x 4.7 cm cm Endometrium: Not well seen. Myometrium: 1.6 x 1.5 x 1.8 centimeter anterior myometrial fibroid with shadowing consistent with vel cification. Cervix: Unremarkable. OVARIES: Right: Cyst or mass: None. Left: Cyst or mass: None. DOPPLER: Color: Symmetric and uniform flow to both ovaries. No hyperemia. CUL-DE-SAC: Free fluid: None. IMPRESSION: 1. Partially calcified small uterine fibroid. 2. Unremarkable bilateral ovaries. DATA REPOSITORY:
== END ==
PROVIDERS: PCP Family Medicine; Visit Provider Obstetrics & Gynecology Gynecology
DX: D25.9 Leiomyoma of uterus, unspecified (principal)
CPT/HCPCS: 77063; 77067; 76830; 76856

== ENCOUNTER → 2022-11-29 00:39 | Outpatient (CLI) | payer BC, SELFPAY ==
--- NOTE | 2022-11-29 07:45 | DI.MAMMO_ITS ---
Exam(s) MAMMO SCREENING EXAM: MAMMO SCREENING CLINICAL HISTORY: SCREENING, Z12.31 TECHNIQUE: Bilateral full field digital CC and MLO mammographic images were obtained with 3D tomosyn thesis and utilizing computer aided detection (CAD). COMPARISON: Available for comparison. FINDINGS: Masses/Architectural Distortion: None seen. Microcalcifications: No suspicious pleomorphic-type are seen. Skin Thickening/Nipple Retraction: None. IMPRESSION: 1. No significant interval change with no specific features of malignancy noted. 2. Unless there is more urgent need, screening mammography is recommended, as per [employer] guidelines. BI-RADS Category 1 - Negative Breast Density - Category B - Scattered areas of fibroglandular density Breast density category C or D implies that the patient has dense breast tissue. Dense breast tissue is very common and is not abnormal but dense breast tissue can make it harder to find cancer on a ma mmogram. Also, dense breast tissue may increase their breast cancer risk. This information about the result of the mammogram report was provided to the patient to raise their awareness. Use this report when you speak with the patient about their risks for breast cancer, which includes their family hist ory. At that time, you may recommend for more screening tests (Ultrasound or MRI) as they might be us eful based on their risk. A negative radiographic report should not delay biopsy if a dominant or clinically suspicious mass is present. Up to ten percent of cancers are not identified on mammography. A negative report may reinforce clinical impression. Adenosis and dense breasts may obscure an underlying neoplasm. False positive reports average 6 to 10%. Patient will receive a letter notifying them of these results.
== END ==
PROVIDERS: PCP Family Medicine; Visit Provider Family Medicine
DX: Z12.31 Encounter for screening mammogram for malignant neoplasm of breast (principal)
CPT/HCPCS: 77063; 77067